=== PATIENT | male | born 1985 | race Asian ===

== ENCOUNTER 2020-07-14 13:04 | Outpatient (CLI) | payer OTHER ==
[2020-07-14] MEDS ORDERED: GADOBUTROL 7.5 MMOL/7.5 ML VIAL ONE (13:15)
[2020-07-14] MEDS ORDERED: iohexoL-240 10 ML VIAL IVP ONE (14:35)
[2020-07-14] MEDS ORDERED: GADOBUTROL 7.5 MMOL/7.5 ML VIAL IVP ONE (14:35)
--- NOTE | 2020-07-14 15:37 | XRAY Report ---
PROCEDURE: Arthrogram Needle Placement INDICATIONS: LT WRIST DERANGEMENT CONTRAST: CONTRAST: omnipaque/gadavist FLUOROSCOPY TIME: FLUORO TIME: 0.24 min and NUMBER IMAGES: 2 TECHNIQUE: After informed consent had been obtained, the wrist was examined fluoroscopically, and a site chosen for injection of the radiocarpal compartment from a dorsal approach. Skin was prepped and draped in the usual fashion and 1% lidocaine infiltrated from the skin down to the articular surface. A hypode rmic needle was then introduced into the articular space and a modest amount of contrast medium was i nstilled confirming intra-articular needle tip placement. This was followed by approximately 4 mL of a dilute gadolinium solution. Needle was removed and dressing was applied. The patient experienced no complications throughout the procedure and left the fluoroscopic suite in no apparent distress. FINDINGS: A single fluoroscopic spot image demonstrates intra-articular location to injected iodinated contrast . IMPRESSION: Successful fluoroscopic-guided administration of dilute Gadolinium solution for wrist MR arthrogram. Reviewed by: Katie Woodard MD, PhD on 07/14/2020 3:36 PM PDT Approved by: Katie Woodard MD, PhD on 07/14/2020 3:36 PM PDT Station ID: [id number]
--- NOTE | 2020-07-14 16:54 | MRI Report ---
PROCEDURE: Arthrogram Wrist LT INDICATIONS: LT WRIST DERANGEMENT CONTRAST: Omnipaque/Gadavist TECHNIQUE: After the administration of 3-4 mL of dilute intra-articular Gadolinium contrast into the radiocarpal compartment, coronal T1 spin echo with fat saturation and T2 fast spin echo with fat saturation, axi al T1 spin echo and T2 fast spin echo with fat saturation, sagittal T1 spin echo with and without fat saturation through the wrist. COMPARISON: Fluoroscopic images from arthrogram injection performed earlier the same day. FINDINGS: Image quality: Excellent. Bones and cartilage: The carpal bones are normally aligned. A minimally displaced ulnar styloid tip fracture is seen. There is mild edema in the adjacent portion of the ulna. No evidence for avascular necrosis. Overlying cartilage surfaces appear normal. A type II lunate is seen without significant degenerative changes at the capitolunate articulation. Carpal ligaments: Gadolinium contrast extravasation into the mid carpal compartment is seen. However , no definite defect in the scapholunate or lunotriquetral ligament is seen and there is no widening of the scapholunate interval. Triangular fibrocartilage complex: The triangular fibrocartilage appears intact, without gadolinium extravasation into the distal radioulnar joint. The styloid attachment of the triangular fibrocartila ge is continuous with the minimally displaced ulnar styloid fracture. There is a moderate amount of f luid in the radioulnar joint with mild synovial hypertrophy. Tendons and soft tissues: The carpal tunnel structures appear normal, including the median nerve. T he ulnar nerve appears normal within Guyon?s canal. There is mild tendinosis of the extensor carpi u lnaris tendon. The remaining extensor tendons are intact. All six extensor tendon compartments demons trate normal morphology, without pathologic tendon sheath fluid. No soft tissue ganglion cysts. IMPRESSION: 1. Minimally displaced fracture of the ulnar styloid tip with mild surrounding osseous edema. Modera te distal radioulnar joint effusion is seen that does not fill with radiocarpal contrast material. No definite triangular fibrocartilage tear is seen. 2. Contrast material is seen in the mid carpal row without visualization of a defect in the scapholu yady or lunotriquetral ligaments. 3. Mild extensor carpi ulnaris tendinosis or contusion. Reviewed by: Gallito Thurman MD on 07/14/2020 4:52 PM PDT Approved by: Gallito Thurman MD on 07/14/2020 4:52 PM PDT Station ID: [id number]
== END 2020-07-14 13:05 | disposition home or self-care (01) ==
LOC: DI 13:04
PROVIDERS: ATTEND Orthopaedic Surgery
DX: S52.612A Displaced fracture of left ulna styloid process, initial encounter for closed fracture (principal); M67.834 Other specified disorders of tendon, left wrist
CPT/HCPCS: 25246; 73222; 77002; A9585; Q9966